=== PATIENT | male | born 1950 | race Caucasian/White ===

== ENCOUNTER 2019-10-31 21:24 | Emergency (ER) | payer MEDICARE, OTHER, SELFPAY ==
[2019-10-31 21:30] VITALS: BP 134/78; PULSE 65; RESP 15; TEMP 36.5; O2SAT 98; BMI 23.7
--- NOTE | 2019-10-31 21:39 | ED.LOWEXIN ---
HPI - Extremity Injury (Lower) General Chief Complaint: Extremity Injury, Lower Stated Complaint: swelling of toes left foot Time Seen by Provider: 10/31/19 21:31 Source: patient Mode of arrival: Ambulatory Limitations: no limitations History of Present Illness HPI Narrative: 69-year-old male otherwise healthy here for evaluation of a red and warm foot and read left 2nd toe. He states that he 1st noticed it today. Does not remember any trauma. Is not diabetic. Does not have any neuropathy that he knows of. States that the toe is not all that painful. Has not tried anything for symptoms prior to arrival Related Data Previous Rx's Medication Instructions Recorded sulfamethoxazole-trimethoprim 1 tab PO BID 7 Days #14 tab 10/31/19 [Bactrim DS] Allergies Allergy/AdvReac Type Severity Reaction Status Date / Time No Known Drug Allergies Allergy Verified 10/31/19 21:37 Review of Systems Constitutional Constitutional: Denies fever(s) Cardiovascular Cardiovascular: Denies chest pain and Denies dyspnea Respiratory Respiratory: Denies dyspnea Gastrointestinal Gastrointestinal: Denies abdominal pain Musculoskeletal Musculoskeletal: Denies myalgias, Denies arthralgias and Denies tingling Integumentary/Breasts Comments: Red warm left foot and left 2nd toe Neurologic Neurologic: Denies sensory deficit, Denies tingling and Denies paresthesias Hematologic/Lymphatic Hematologic/Lymphatic: Denies easy bleeding and Denies easy bruising Patient History Medical History Healthy adult (Acute) Social History Smoking Status: Never smoker Smoking Status: Never smoker alcohol intake frequency: 0-2 drinks per day Substance Use Type: does not use Exam Initial Vital Signs Initial Vital Signs: Vital Signs Temperature 97.7 F 10/31/19 21:30 Pulse Rate 65 10/31/19 21:30 Respiratory Rate 15 10/31/19 21:30 Blood Pressure 134/78 10/31/19 21:30 Pulse Oximetry 98 10/31/19 21:30 Cardio Pulses: dorsalis pedis present on the left Skin Other: Patient with redness to his distal left foot and warmth compared to the right. There's no blistering. No pustules. No vesicles. No breaks in the skin. Does have brisk cap refill over the area. Neuro Gait: normal gait Sensory Exam: no sensory deficits noted Extrem General: normal to inspection, capillary refill normal, no pedal edema, no calf tenderness, No calf tenderness, No cyanosis and No edema Psych Appearance: grossly normal and well kempt Course Orders Ordered: ED Orders 10/31/19 21:38 XR foot LT min 3V Stat Discontinued Medications Trimethoprim/Sulfamethoxazole (Bactrim Ds) 1 tab PO NOW ONE Stop: 10/31/19 22:21 Last Admin: 10/31/19 22:27 Dose: 1 tab Documented by: FRANKLYN Vital Signs Vital signs: Vital Signs - 8 hr 10/31/19 21:30 Temperature 97.7 F Pulse Rate 65 Respiratory Rate 15 Blood Pressure 134/78 Pulse Oximetry 98 MDM - Extremity Injury (Lower) Imaging Data Foot x-ray: Radiologist's impression: [address] [address] XRay Report Signed Patient: Paris Colon#: [id number] : 1950Acct:[id number] Age/Sex: 69 / MDate of Service: 10/31/19 Loc: ED Accession Number: [id number] Procedure: XR foot LT min 3V Ordering Provider: Maico Medeiros D.O. PROCEDURE: XR FOOT LT MIN 3V INDICATIONS: redness 2nd/3rd distal toes TECHNIQUE: 3 views of the foot were acquired. COMPARISON: None. FINDINGS: Bones: No fractures or dislocations. No suspicious bony lesions. Soft tissues: No tibiotalar joint effusion. Achilles tendon appears normal. IMPRESSION: A no trauma found. No underlying evidence of osteomyelitis or foreign body seen. Dictated by: Petey Schafer M.D. on 10/31/2019 at 21:55 Approved by: Petey Schafer M.D. on 10/31/2019 at 21:56 [facility] Narrative Medical decision making narrative: Patient is nontoxic. He is afebrile. Has a strong palpable DP pulse on the left with brisk capillary refill the left foot. X-ray shows no signs of trauma. The skin is red specifically over the tip of the left 2nd toe. Is not particularly tender to palpation. There's no ulcerations. Patient is not diabetic. The distal portion of his left foot is warm compared to the right. Considered fractures however x-ray shows no signs of this. Considered ingrown toenail however physical exam is not consistent with this. Considered cellulitis which is currently the most likely cause sole start him on antibiotics. Considered other etiologies such as ischemic foot versus blood clot verses other less common things such as frostbite in this physical exam are just not consistent with that currently. Patient was given strict return precautions. Is given his 1st dose of antibiotics here. Was given return precautions and follow-up instructions. He expressed understanding and agreement plan. Discharge Plan Departure Patient Disposition: Home Clinical Impression: Cellulitis Qualifiers: Site of cellulitis: unspecified site Qualified Code(s): L03.90 - Cellulitis, unspecified Discharge Date/Time: 10/31/19 22:30 Instructions: DI for Cellulitis -- Adult Activity Restrictions/Additional Instructions: Take the antibiotics as directed. You have no restrictions on any of your activities. Keep all of your scheduled medical appointments. Return to the emergency department for any new or worsening symptoms Prescriptions: New sulfamethoxazole-trimethoprim [Bactrim DS] 800-160 mg tablet 1 tab PO BID 7 Days Qty: 14 RF: 0 Referrals: Rafael Mcclain MD [Primary Care Provider] -
[2019-10-31] MEDS: TRIMETH/SULFA 160/800 (DS) TABLET 1 TAB PO (22:27)
== END 2019-10-31 22:30 | disposition home or self-care (01) ==
PROVIDERS: Emergency Provider Emergency Medicine; PCP Student in an Organized Health Care Education/Training Program
DX: L03.032 Cellulitis of left toe (principal)
CPT/HCPCS: 73630; 99281; 99283

== ENCOUNTER → 2020-08-11 09:45 | Outpatient (CLI) | payer MEDICARE, OTHER, SELFPAY ==
[2020-08-13 09:27] LABS: COVID19 Sendout Not Detected (Not Detect)
== END ==
PROVIDERS: PCP Student in an Organized Health Care Education/Training Program; Visit Provider Physician Assistant
DX: Z11.59 Encounter for screening for other viral diseases (principal)
CPT/HCPCS: 87635

== ENCOUNTER 2020-08-14 07:10 | Day surgery (SDC) | payer MEDICARE, OTHER, SELFPAY ==
[2020-08-14] VITALS (7 sets, daily range): BP systolic 97–113; BP diastolic 65–76; PULSE 51–77; RESP 11–16; TEMP 36–36.4; O2SAT 93–97; BMI 24.4
[2020-08-14] MEDS: LACTATED RINGERS 1,000 ML 200 ML IV (07:38)
--- NOTE | 2020-08-14 08:32 | PM.HP.1 ---
History of Present Illness History of Present Illness Date Patient Seen: 08/14/20 Time Patient Seen: 08:32 Chief complaint: SDC Narrative: The patient presents for colorectal sreening. He has had several previous colonoscopies most recently 3 years ago that demonstrated polyps. Performed at an outside institution records are not available for review today. No personal or family history of colon cancer. On further history denies any recent gastrointestinal symptoms. No nausea, vomiting, abdominal pain, loss of appetite, unexplained weight loss, change in bowel habits, diarrhea, constipation, melena, hematochezia, or bright red blood per rectum. Patient History Medical History Colon polyps (Inactive ~2016) Healthy adult (Acute) Hearing loss (Chronic ~2019) Surgical History Anesthesia (Resolved) History of cataract removal with insertion of prosthetic lens (Resolved ~2019) History of colonoscopy (Resolved) Family & Social History Family History Father Stroke Social History: household members significant other Tobacco & Substance use: Smoking Status Former smoker alcohol intake current alcohol intake frequency 0-2 drinks per day Substance Use Type does not use Meds Home Medications and Allergies Home Medications Medication Instructions Recorded Confirmed Type No Known Home Medications 04/18/20 08/14/20 History Allergies Allergy/AdvReac Type Severity Reaction Status Date / Time No Known Drug Allergies Allergy Verified 08/14/20 07:28 Review of Systems Review of Systems Narrative: A 10 point review of systems is negative except as noted in the HPI Exam Vital Signs (past 8 hours): - 08/14/20 07:38 Temperature 97.5 F L Pulse Rate 77 Respiratory Rate 16 Blood Pressure 112/75 Pulse Oximetry 97 Oxygen Delivery Method Room Air Narrative Exam Narrative: General-no acute distress, well nourished adult male HEENT-moist mucous membranes, no scleral icterus Neck-supple, no lymphadenopathy Chest- non labored respirations, clear to auscultation bilaterally Cardiac-regular rate no peripheral edema Abdomen-soft, nontender, non distended Extremities-warm, well perfused Neurological-alert and oriented, no focal deficits Assessment & Plan Assessment and plan (1) Screening for colon cancer: Status: Acute Assessment & Plan narrative: The patient requires colorectal screening and colonoscopy is recommended. Technical details were discussed. Risks, benefits, alternatives explained. Risks including but not limited to myocardial infarction, aspiration, bleeding, pain, missed lesion, incomplete examination, need for further radiographic studies, colonic perforation, and need for major abdominal surgery were discussed. All questions were answered to their satisfaction, and they are in agreement with this plan.
[2020-08-14] MEDS: fentaNYL 250 MCG/5 ML INJ IV (08:39)
[2020-08-14] MEDS: MIDAZOLAM 5 MG/5 ML VIAL IV (08:39)
--- NOTE | 2020-08-14 08:54 | PM.OP.ENDO ---
Operative Date/Time/Diagnoses Date of procedure: 08/14/20 Time of procedure: 08:55 Pre-op diagnosis: History adenomatous polyp Post-op diagnosis: same Procedure & Clinicians Study performed: Colonoscopy Same procedure as scheduled: Yes Indications: 70-year-old man history of polyps presents for a routine screening colonoscopy Surgeon: Uriel Junior Procedure Notes SCOAP/Timeout: Performed Procedure in detail: Patient placed in left lateral recumbent position. Time out was performed. Procedural sedation was administered with Versed and Fentanyl. Examination began with a thorough inspection of the perianal area there was no evidence of fissures, fistulae, external hemorrhoids or cutaneous malignancy. The colonoscopy scope was then placed into the rectum the the lumen was insufflated with air. The scope was carefully advanced forward. Ultimately the cecum was intubated and confirmed by identification of the ileocecal valve, the appendiceal orifice and the confluence of the taenia. The scope was then slowly withdrawn examining colon thoroughly in all directions. In the rectum the rectal columns were identified and retroflexion of the scope was performed for inspection of the distal rectum and anal canal. The colonoscopy was notable for the followin. Quality of the preparation-excellent 2. No masses or polyps 3. Sigmoid diverticulosis 4. Tattoo within the distal rectum no evidence of remnant polyp Scope withdrawal time: 8 Sedation minutes: 16 Findings: diverticulosis Specimen(s): none sent Complications: none Impression: Diverticulosis Post-procedure Recommendations: Colonscopy in 10 years Disposition: same day surgery
--- NOTE | 2020-08-14 09:27 | SUR.PHASEII ---
Patient drowsy. Denied pain, abdomen soft. Call light within reach.
== END 2020-08-14 09:51 | disposition home or self-care (01) ==
PROVIDERS: PCP Student in an Organized Health Care Education/Training Program; Referring Provider Student in an Organized Health Care Education/Training Program; Visit Provider Surgery
PROC: 0DJD8ZZ Inspection of Lower Intestinal Tract, Via Natural or Artificial Opening Endoscopic (ICD-10-PCS; CPT 45378; principal; 2020-08-14 08:30)
DX: Z12.11 Encounter for screening for malignant neoplasm of colon (principal); Z86.010 Personal history of colon polyps
CPT/HCPCS: G0105; 99152; J2250; J3010

== ENCOUNTER → 2020-12-05 15:48 | Outpatient (CLI) | payer MEDICARE, OTHER, SELFPAY ==
[2020-12-05] MEDS: COVID-19 VACC #1, MRNA(MOD) 100 MCG/0.5 ML VIAL IM (16:03)
== END ==
PROVIDERS: PCP Student in an Organized Health Care Education/Training Program; Visit Provider Internal Medicine
DX: Z23 Encounter for immunization (principal)
CPT/HCPCS: 0011A; 91301

== ENCOUNTER → 2021-01-02 15:42 | Outpatient (CLI) | payer MEDICARE, OTHER, SELFPAY ==
[2021-01-02] MEDS: COVID-19 VACC #2, MRNA(MOD) 100 MCG/0.5 ML VIAL IM (15:51)
== END ==
PROVIDERS: PCP Student in an Organized Health Care Education/Training Program; Visit Provider Internal Medicine
DX: Z23 Encounter for immunization (principal)
CPT/HCPCS: 0012A; 91301

== ENCOUNTER → 2021-09-14 10:27 | Outpatient (CLI) | payer MEDICARE, OTHER, SELFPAY ==
[2021-09-14] MEDS: COVID-19 VACC #3, MRNA(MOD) 50 MCG/0.25 ML VIAL IM (10:35)
== END ==
PROVIDERS: PCP Student in an Organized Health Care Education/Training Program; Referring Provider Internal Medicine; Visit Provider Internal Medicine
DX: Z23 Encounter for immunization (principal)
CPT/HCPCS: 0013A; 91301

== ENCOUNTER → 2021-09-17 15:54 | Outpatient (CLI) | payer MEDICARE, OTHER, SELFPAY ==
[2021-09-17 17:18] LABS: Cholesterol 178 mg/dL (140-199); HDL Cholesterol 72 mg/dL (40-60); LDL Cholesterol Calculated 80 mg/dL (<100); Triglycerides 131 mg/dL (35-150)
[2021-09-17 17:28] LABS: Vitamin D 25 Hydroxy (D3) 39.3 ng/mL (30.0-100.0)
== END ==
PROVIDERS: PCP Student in an Organized Health Care Education/Training Program; Referring Provider Student in an Organized Health Care Education/Training Program; Visit Provider Student in an Organized Health Care Education/Training Program
DX: E55.9 Vitamin D deficiency, unspecified (principal); Z13.220 Encounter for screening for lipoid disorders
CPT/HCPCS: 36415; 80061; 82306

== ENCOUNTER → 2022-02-19 10:55 | Outpatient (CLI) | payer MEDICARE, OTHER, SELFPAY ==
--- NOTE | 2022-02-19 10:56 | DI.RAD.S_ITS ---
PROCEDURE: XR KNEE RT 3V INDICATIONS: Medial knee pain TECHNIQUE: 3 views of the knee were acquired. COMPARISON: None. FINDINGS: Bones: No fractures or dislocations. No suspicious bony lesions. Small tricompartment osteophytes. Mild to moderate medial compartment joint space loss. Soft tissues: No joint effusion. No suspicious soft tissue calcifications. IMPRESSION: Degenerative arthritis of the right knee. No evidence acute bony abnormality of the right knee. If clinical suspicion and/or symptoms persist, further assessment with repeat plain films, or advanced imaging (e.g., CT, MRI, or bone scan) may be helpful for further assessment. Dictated by: Quoc Henriquez M.D. on 02/19/2022 at 12:43 Approved by: Quoc Henriquez M.D. on 02/19/2022 at 12:44
== END ==
PROVIDERS: PCP Student in an Organized Health Care Education/Training Program; Referring Provider Student in an Organized Health Care Education/Training Program; Visit Provider Student in an Organized Health Care Education/Training Program
DX: M25.561 Pain in right knee (principal); M17.11 Unilateral primary osteoarthritis, right knee
CPT/HCPCS: 73562